=== PATIENT | female | born 1985 | race American Indian/Alaskan Native ===

== ENCOUNTER 2020-02-24 15:01 | Emergency (ER) | payer OTHER, SELFPAY ==
[~2020-02-24] VITALS: Ht 167.6 cm; Wt 90.7 kg
[2020-02-24 15:42] VITALS: BP_SYST 116
--- NOTE | 2020-02-24 16:30 | NUR ---
PT SEEN WALKING OUT THE DOOR BY ADMITTING STAFF. LWBS AT THIS TIME.
== END 2020-02-24 16:30 | disposition left against medical advice (07) ==
LOC: SED 15:01
DX: R05 Cough (principal); R50.9 Fever, unspecified; R09.81 Nasal congestion; Z53.21 Procedure and treatment not carried out due to patient leaving prior to being seen by health care provider